=== PATIENT | male | born 1940 | race Caucasian/White ===

== ENCOUNTER 2023-06-04 17:02 | Emergency (ER) | payer OTHER ==
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
[2023-06-04 19:47] LABS: Specific Gravity 1.006 (1.005-1.030); Urine Bacteria <20 /HPF (<20); Urine Bilirubin NEGATIVE (Negative); Urine Blood 3+ (OVER) (Negative); Urine Clarity Extremely Turbid (Clear); Urine Color Light-Yellow (Yellow); Urine Glucose NEGATIVE (Negative); Urine Mucus Slight /HPF (None Seen); Urine Protein 2+ (Negative); Urine Urobilinogen Normal (Normal); Urine WBC Clump Few /HPF (None Seen); Urine pH 5.5 (5.0-7.0)
[2023-06-04] MEDS ORDERED: CIPROFLOXACIN HCL 500 MG TAB ONE (19:48)
[2023-06-04 20:40] VITALS: TEMP 97.8; O2SAT 100
[2023-06-04 20:42] VITALS: BP 146/78
== END 2023-06-04 19:44 | disposition home or self-care (01) ==
LOC: ER 17:02
DX: S39.82XA Other specified injuries of lower back, initial encounter (principal); R30.0 Dysuria; V49.49XA Driver injured in collision with other motor vehicles in traffic accident, initial encounter; I10 Essential (primary) hypertension; Z95.1 Presence of aortocoronary bypass graft
CPT/HCPCS: 72131; 81001

== ENCOUNTER 2024-05-07 01:01 | Emergency (ER) | payer OTHER ==
[2024-05-07 02:34] LABS: Absolute Basophils 0.1 K/uL (0-0.5); Absolute Lymphocytes (CBC) 2.1 K/uL (0.7-4.9); Absolute Monocytes 1.2 K/uL (0.1-1.3); Basophils % 0.6 % (0-1.3); Eosinophils % 0.2 % (0-4.4); Hematocrit 38.2 % (39.6-49.0); Lymphocytes % 18.3 % (15.3-44.8); MCH 30.2 pg (27.0-35.0); MCHC 34.2 g/dL (32.0-36.0); MCV 88.3 fL (80-100); MPV 8.2 fL (7.6-11.3); Neutrophils % 69.9 % (41.7-73.7); Platelets 215 thou/uL (152-406); RBC Red Blood Cell Count 4.32 M/uL (4.33-5.43); Red Cell Distribution Width 13.6 % (12.1-15.2)
[2024-05-07 02:44] LABS: ALT/SGPT 15 U/L (16-61); Albumin 2.8 g/dL (3.4-5.0); Albumin/Globulin Ratio 0.7 (1.1-1.8); Alkaline Phosphatase 64 U/L (45-117); Anion Gap 9.3 mEq/L (5.0-15.0); BUN Blood Urea Nitrogen 17 mg/dL (7-18); Bicarbonate 28 mEq/L (21-32); Bilirubin Total 0.7 mg/dL (0.2-1.0); Globulin 3.8 g/dL (2.3-3.5); Glomerular Filtration Rate 57 ml/min (=/>90); Glucose Level 161 mg/dL (74-106); Lipase 33 U/L (13-75); Potassium 3.3 mEq/L (3.5-5.1); Protein, Total 6.6 g/dL (6.4-8.2); Sodium Level 137 mEq/L (136-145)
[2024-05-07 02:46] LABS: AST/SGOT < 10 U/L (15-37)
[2024-05-07 02:47] LABS: Specific Gravity 1.013 (1.005-1.030); Sqamous Epithelial None Seen /HPF (None Seen); Urine Bacteria None Seen /HPF (<20); Urine Bilirubin NEGATIVE (Negative); Urine Blood 3+ (OVER) (Negative); Urine Clarity Extremely Turbid (Clear); Urine Color Red (Yellow); Urine Culture Reflex Order REFLEXED; Urine Glucose NEGATIVE (Negative); Urine Ketones NEGATIVE (Negative); Urine Microscopic Reflex YN ORDER UMIC; Urine Mucus 2+ /HPF (None Seen); Urine Nitrite NEGATIVE (Negative); Urine Protein 2+ (Negative); Urine RBC >50 /HPF (None Seen); Urine Urobilinogen Normal (Normal); Urine WBC >50 /HPF (<5); Urine pH 6.5 (5.0-7.0)
[2024-05-07] MEDS ORDERED: CEFTRIAXONE 1000 MG/VIAL ONE (03:40)
[2024-05-07] MEDS ORDERED: NA CHLORIDE 0.9% 50 ML ONE (03:41)
[2024-05-07] MEDS ORDERED: MORPHINE 4 MG/ML SYR ONE (03:50)
[2024-05-07] MEDS ORDERED: ONDANSETRON 4 MG/2 ML VIAL ONE (03:50)
--- NOTE | 2024-05-07 05:52 | ER ---
Nurse's Notes [facility] Name: Murtaza Rodriguez Age: 83 yrs Sex: Male : 1940 Arrival Date: 05/07/2024 Time: 01:01 Bed 8 Private MD: Edwar Dong V Diagnosis: Acute cystitis;Acute cystitis with hematuria Presentation: 05/07 01:36 Chief complaint: Patient states: I have been having bloody urine with my intermittent jb4 cath's all day. I have also been having a chest heaviness when I take deep breaths and I just don't feel right. Coronavirus screen: At this time, the client does not indicate any symptoms associated with coronavirus-19. Ebola Screen: No symptoms or risks identified at this time. Initial Sepsis Screen: Does the patient meet any 2 criteria? No. Patient's initial sepsis screen is negative. Does the patient have a suspected source of infection? No. Patient's initial sepsis screen is negative. Risk Assessment: Do you want to hurt yourself or someone else? Patient reports no desire to harm self or others. Onset of symptoms was May 07, 2024. Transition of care: patient was not received from another setting of care. 01:36 Method Of Arrival: Ambulatory jb4 01:36 Acuity: SAMUEL 3 jb4 Triage Assessment: 04:24 General: Appears in no apparent distress. comfortable, Behavior is calm, cooperative, bm8 appropriate for age. Historical: - Allergies: 01:43 No Known Allergies; jb4 - Home Meds: 01:43 Xarelto oral [Active]; jb4 - PMHx: 01:43 a fib; coronary atherosclerosis; Hypercholesterolemia; Hypertensive disorder; jb4 - PSHx: 01:43 Coronary artery bypass graft; jb4 - Immunization history:: Adult Immunizations up to date. - Infectious Disease History:: Denies. - Family history:: not pertinent. - Social history:: Smoking status: Patient denies any tobacco usage or history of. Screenin:12 [facility] ED Fall Risk Assessment (Adult) History of falling in the last 3 months, bm8 including since admission No falls in past 3 months (0 pts) Confusion or Disorientation No (0 pts) Intoxicated or Sedated No (0 pts) Impaired Gait No (0 pts) Mobility Assist Device Used No (0 pt) Altered Elimination No (0 pt) Score/Fall Risk Level 0 - 2 = Low Risk Oriented to surroundings, Maintained a safe environment, Educated pt \T\ family on fall prevention, incl call for assistance when getting out of bed, Assessed \T\ reinforced patient's understanding of fall precautions. Abuse screen: Denies threats or abuse. Nutritional screening: No deficits noted. Tuberculosis screening: No symptoms or risk factors identified. Assessment: 01:42 Reassessment: Patient appears in no apparent distress at this time. Patient and/or bm8 family updated on plan of care and expected duration. Pain level reassessed. Patient is alert, oriented x 3, equal unlabored respirations, skin warm/dry/pink. 02:12 Pain: Denies pain. Neuro: No deficits noted. Level of Consciousness is awake, alert, bm8 obeys commands, Oriented to person, place, time, situation. Cardiovascular: Denies chest pain, lightheadedness, shortness of breath. Respiratory: Airway is patent Trachea midline Respiratory effort is even, unlabored, Respiratory pattern is regular, symmetrical, Breath sounds are clear bilaterally. : Reports blood in urine that started tonight Denies pain. 02:12 General: Appears in no apparent distress. comfortable. rg5 03:00 Reassessment: Patient and/or family updated on plan of care and expected duration. Pain lc8 level reassessed. Patient is alert, oriented x 3, equal unlabored respirations, skin warm/dry/pink. 04:23 Reassessment: bladder irrigation started. bm8 04:32 Reassessment:. Musculoskeletal:. rg5 05:33 Reassessment: Patient appears in no apparent distress at this time. Patient and/or bm8 family updated on plan of care and expected duration. Pain level reassessed. Patient is alert, oriented x 3, equal unlabored respirations, skin warm/dry/pink. pt's urine running clear after irrigation. Provider and pt discussed further plan of care and awaiting discharge. : Denies pain. Vital Signs: 01:36 BP 110 / 71; Pulse 68; Resp 16; Temp 99.2(TE); Pulse Ox 98% on R/A; Weight 90.72 kg jb4 (R); Height 6 ft. 0 in. (R); 02:30 BP 130 / 78; Pulse 78; Resp 17 S; Pulse Ox 97% on R/A; lc8 04:24 BP 123 / 76; Pulse 82; Resp 16; Temp 99.2; Pulse Ox 97% ; Pain 2/10; bm8 05:33 BP 116 / 74; Pulse 74; Resp 16; Temp 99.2; Pulse Ox 96% ; Pain 0/10; bm8 01:36 Body Mass Index 27.12 (90.72 kg, 182.88 cm) jb4 04:24 Pain Scale: Adult bm8 05:33 Pain Scale: Adult bm8 Troy Coma Score: 01:37 Eye Response: spontaneous(4). Motor Response: obeys commands(6). Verbal Response: sp4 oriented(5). Total: 15. 02:12 Eye Response: spontaneous(4). Motor Response: obeys commands(6). Verbal Response: bm8 oriented(5). Total: 15. 05:33 Eye Response: spontaneous(4). Motor Response: obeys commands(6). Verbal Response: bm8 oriented(5). Total: 15. ED Course: 01:08 Patient arrived in ED. gm2 01:08 Edwar Dong MD is Private Physician. gm2 01:27 Michael Lin MD is Attending Physician. sp4 01:40 Bhavesh Garces, RN is Primary Nurse. bm8 01:43 Triage completed. jb4 01:43 Arm band placed on right wrist. jb4 02:03 CT Abd/Pelvis - Without Contrast In Process Unspecified. EDMS 02:12 Patient has correct armband on for positive identification. Placed in gown. Bed in low bm8 position. Call light in reach. Side rails up X 1. Adult w/ patient. Client placed on continuous cardiac and pulse oximetry monitoring. NIBP monitoring applied. Pulse ox on. NIBP on. Door closed. Noise minimized. Warm blanket given. Verbal reassurance given. 02:12 No provider procedures requiring assistance completed. Initial lab(s) drawn, by nirmala banks sent to lab. Urine collected: straight cath specimen, chuy blood, Amount Returned: 60mL. Inserted saline lock: 20 gauge in right antecubital area, using aseptic technique. Blood collected. 04:21 3-way catheter inserted, using sterile technique, 20 Fr. Specimen obtained. initial bm8 return 300 ml. 05:51 Daron Thomas MD is Referral Physician. sp4 05:53 Provided Education on: Post ER care and need for follow up with PCP regarding Xarelto bm8 use and need to see urologist . 05:53 IV discontinued, intact, bleeding controlled, No redness/swelling at site. Pressure bm8 dressing applied. Administered Medications: 03:50 Drug: Rocephin - Rocephin (cefTRIAXone) IVPB 1 grams IVPB once over 30 mins; (mix in 50 lc8 mL NS) Route: IVPB; Infused Over: 30 mins; Site: right antecubital; 04:20 Follow up: Response: No adverse reaction; IV Status: Completed infusion lc8 04:21 Follow up: Response: No adverse reaction; IV Status: Completed infusion; IV Intake: [id number] 04:21 Drug: morphine IVP or IV 4 mg IVP once over 4 mins Route: IVP; Infused Over: 4 mins; bm8 Site: right antecubital; 04:39 Follow up: Response: No adverse reaction rg5 04:21 Drug: Ondansetron IVP 4 mg IVP once; over 2 minutes Route: IVP; Site: right antecubital;bm8 04:37 Follow up: Response: No adverse reaction rg5 Medication: 02:12 VIS not applicable for this client. bm8 Intake: 04:21 IV: 50ml; Total: 50ml. bm8 Outcome: 05:51 Discharge ordered by . sp4 05:53 Discharged to home ambulatory, bm8 05:53 Condition: stable 05:53 Discharge instructions given to patient, family, Instructed on discharge instructions, follow up and referral plans. medication usage, safety practices, Demonstrated understanding of instructions, follow-up care, medications, Prescriptions given X 1, 05:55 Patient left the ED. bm8 Signatures: Dispatcher [employer] EDMS Cyrus Huitron RN RN Michael Franco MD MD sp4 [place] 2 Bhavesh Garces RN RN bm8 Jeffrey Gao RN RN rg5 Oswald Almonte RN RN lc8 Corrections: (The following items were deleted from the chart) 04:36 02:12 General: Appears in no apparent distress. comfortable, bm8 rg5 05:02 04:57 PMHx: high cholestrol; rg5 rg5 05:02 04:57 PMHx: hyperlipedemia; rg5 rg5
--- NOTE | 2024-05-07 05:52 | EDPHYS ---
Physician Documentation [facility] Name: Murtaza Rodriguez Age: 83 yrs Sex: Male : 1940 Arrival Date: 05/07/2024 Time: 01:01 Bed 8 Private MD: Edwar Dong V ED Physician Michael Lin HPI: 05/07 01:32 This 83 yrs old Male presents to ER via Unassigned with complaints of Blood sp4 In Catheter. 01:37 83-year-old male presents with acute episode of gross hematuria at home. Patient states sp4 to take Xarelto for atrial fibrillation. Patient states he has practiced self-catheterization for the past several years. Patient reported last time he provided self cath he noticed blood in the urine.. Historical: - Allergies: 01:43 No Known Allergies; jb4 - Home Meds: 01:43 Xarelto oral [Active]; jb4 - PMHx: 01:43 a fib; coronary atherosclerosis; Hypercholesterolemia; Hypertensive disorder; jb4 - PSHx: 01:43 Coronary artery bypass graft; jb4 - Immunization history:: Adult Immunizations up to date. - Infectious Disease History:: Denies. - Family history:: not pertinent. - Social history:: Smoking status: Patient denies any tobacco usage or history of. ROS: 01:39 Constitutional: Negative for fever, chills, and weight loss, positive for gross sp4 hematuria, positive for chest heaviness Exam: 01:37 Constitutional: This is a well developed, well nourished patient who is awake, alert, sp4 and in no acute distress. Head/Face: Normocephalic, atraumatic. Eyes: Pupils equal round and reactive to light, extra-ocular motions intact. Lids and lashes normal. Conjunctiva and sclera are not injected. Cornea within normal limits. Periorbital areas with no swelling, redness, or edema. ENT: Nares patent. No nasal discharge, no septal abnormalities noted. Tympanic membranes are normal and external auditory canals are clear. Oropharynx with no redness, swelling, or masses, exudates, or evidence of obstruction, uvula midline. Mucous membranes moist. Neck: Trachea midline, no thyromegaly or masses palpated, and no cervical lymphadenopathy. Supple, full range of motion without nuchal rigidity, or vertebral point tenderness. Chest/axilla: Normal chest wall appearance and motion. Nontender with no deformity. No lesions are appreciated. Cardiovascular: Regular rate and rhythm with a normal S1 and S2. No gallops, murmurs, or rubs. Normal PMI, no JVD. No pulse deficits. Respiratory: Lungs have equal breath sounds bilaterally, clear to auscultation and percussion. No rales, rhonchi or wheezes noted. No increased work of breathing, no retractions or nasal flaring. Abdomen/GI: Soft, with normal bowel sounds. No distension or tympany. No guarding or rebound. No evidence of tenderness throughout. Back: No spinal tenderness. No costovertebral tenderness. Male : Normal genitalia with no discharge or lesions. Skin: Warm, dry with normal turgor. Normal color with no rashes, no lesions, and no evidence of cellulitis. MS/ Extremity: Pulses equal, no cyanosis. Neurovascular intact. Full, normal range of motion. Neuro: Awake and alert, GCS 15, oriented to person, place, time, and situation. Cranial nerves II-XII grossly intact. Motor strength 5/5 in all extremities. Sensory grossly intact. Psych: Awake, alert, with orientation to person, place and time. Behavior, mood, and affect are within normal limits 04:43 ECG was reviewed by the Attending Physician. EKG 74 bpm at 0 221 reveals A-fib at 74 sp4 bpm. Vital Signs: 01:36 BP 110 / 71; Pulse 68; Resp 16; Temp 99.2(TE); Pulse Ox 98% on R/A; Weight 90.72 kg jb4 (R); Height 6 ft. 0 in. (R); 02:30 BP 130 / 78; Pulse 78; Resp 17 S; Pulse Ox 97% on R/A; lc8 04:24 BP 123 / 76; Pulse 82; Resp 16; Temp 99.2; Pulse Ox 97% ; Pain 2/10; bm8 05:33 BP 116 / 74; Pulse 74; Resp 16; Temp 99.2; Pulse Ox 96% ; Pain 0/10; bm8 01:36 Body Mass Index 27.12 (90.72 kg, 182.88 cm) jb4 04:24 Pain Scale: Adult bm8 05:33 Pain Scale: Adult bm8 Steff Coma Score: 01:37 Eye Response: spontaneous(4). Motor Response: obeys commands(6). Verbal Response: sp4 oriented(5). Total: 15. 02:12 Eye Response: spontaneous(4). Motor Response: obeys commands(6). Verbal Response: bm8 oriented(5). Total: 15. 05:33 Eye Response: spontaneous(4). Motor Response: obeys commands(6). Verbal Response: bm8 oriented(5). Total: 15. Procedures: 05:49 Three-way catheter was placed and patient's bladder was irrigated with 3 L of sterile sp4 saline. Clear effluent obtained. . MDM: 01:27 Patient medically screened. sp4 03:34 ED course: TECHNIQUE: Axial computed tomography images of the abdomen and pelvis sp4 without intravenous contrast. Sagittal and coronal reformatted images were created and reviewed. This CT exam was performed using one or more of the following dose reduction techniques: automated exposure control, adjustment of the mA and/or kV according to patient size, and/or use of iterative reconstruction technique. COMPARISON: No relevant prior studies available. FINDINGS: Lung bases: Left lower lobe calcified granuloma. No consolidation. Pleural space: Trace left pleural fluid. Heart: The heart is mildly enlarged. Coronary artery calcification. ABDOMEN: Liver: Hepatic parenchymal calcifications compatible with remote granulomatous organism exposure. Gallbladder and bile ducts: Tiny layering gallstones. No gallbladder wall thickening or pericholecystic fluid. No ductal dilation. Pancreas: Unremarkable. No ductal dilation. Spleen: Splenic parenchymal calcifications compatible with remote granulomatous organism exposure. Adrenals: Unremarkable. No mass. Kidneys and ureters: Lobulated renal contour bilaterally. No calculi. No hydronephrosis. Bilateral renal cysts measuring 2.5 cm at the lateral mid pole on the right and 2 cm at the posterolateral mid pole on the left. No follow-up imaging is recommended. JACR 2018 Dec; 264-273, Management of the Incidental Renal Mass on CT, [employer] 2020; 814-848, Bosniak Classification of Cystic Renal Masses, Version 2019. Stomach and bowel: Moderate stool. No bowel obstruction. No appreciable mucosal thickening. PELVIS: Appendix: Normal caliber appendix. No findings to suggest acute appendicitis. Bladder: Moderate urinary bladder wall thickening. There is extensive lobulated soft tissue density within the urinary bladder measuring approximately 7.1 x 7.6 x 5 cm (AP by transverse by CC). Reproductive: The prostate is enlarged. ABDOMEN and PELVIS: Intraperitoneal space: Unremarkable. No free air. No significant fluid collection. Bones/joints: Prior median sternotomy. Multilevel spondylosis. No acute fracture. No dislocation. Soft tissues: Small fat-containing umbilical and bilateral inguinal hernias. Vasculature: Severe atherosclerotic disease. No abdominal aortic aneurysm. Lymph nodes: Unremarkable. No enlarged lymph nodes. IMPRESSION: 1. Extensive lobulated soft tissue density within the urinary bladder measuring approximately 7.1 x 7.6 x 5 cm (AP x TR x CC). Findings may be related to hemorrhagic clot in combination with an underlying mass/malignancy. 2. Moderate urinary bladder wall thickening. This may be related to bladder outlet obstruction. Please correlate clinically for cystitis. 3. Other findings as above. . 05:49 Differential Diagnosis Hematuria, Acute cystitis . Data reviewed: vital signs, nurses sp4 notes. ED course: Patient went through bladder irrigation and oral bladder was irrigated out producing clear effluent. Will prescribe cephalexin twice a day for 10 days patient will be referred to Dr. Thomas with urology. Will advised to continue p.o. Xarelto as prescribed. . 05:55 ED course: Stable for discharge home at this time with Urology follow up . sp4 05/07 01:37 Order name: CBC with Diff; Complete Time: 03:34 sp4 05/07 01:37 Order name: CMP; Complete Time: 03:34 sp4 05/07 01:37 Order name: Lipase; Complete Time: 03:34 sp4 05/07 01:37 Order name: Urinalysis w/ reflexes; Complete Time: 03:34 sp4 05/07 02:57 Order name: Urine Culture EDDC 05/07 01:37 Order name: CT Abd/Pelvis - Without Contrast sp4 05/07 01:37 Order name: EKG; Complete Time: 01:38 sp4 05/07 01:37 Order name: IV Saline Lock; Complete Time: 02:18 sp4 05/07 01:37 Order name: Labs collected and sent; Complete Time: 02:18 sp4 05/07 01:37 Order name: Cath; Complete Time: 02:18 sp4 05/07 01:37 Order name: EKG - Nurse/Tech; Complete Time: 02:25 sp4 05/07 03:40 Order name: [place]; Complete Time: 04:21 sp4 05/07 03:40 Order name: Bladder Irrigation; Complete Time: 04:21 sp4 EC:43 Rate is 74 beats/min. Rhythm is irregularly irregular, A fib. QRS Withams is Normal. QRS sp4 interval is normal. QT interval is normal. No Q waves. T waves are Normal. No ST changes noted. Clinical impression: No evidence of ischemia. Interpreted by me. Reviewed by me. Administered Medications: 03:50 Drug: Rocephin - Rocephin (cefTRIAXone) IVPB 1 grams IVPB once over 30 mins; (mix in 50 lc8 mL NS) Route: IVPB; Infused Over: 30 mins; Site: right antecubital; 04:20 Follow up: Response: No adverse reaction; IV Status: Completed infusion lc8 04:21 Follow up: Response: No adverse reaction; IV Status: Completed infusion; IV Intake: [id number] 04:21 Drug: morphine IVP or IV 4 mg IVP once over 4 mins Route: IVP; Infused Over: 4 mins; bm8 Site: right antecubital; 04:39 Follow up: Response: No adverse reaction rg5 04:21 Drug: Ondansetron IVP 4 mg IVP once; over 2 minutes Route: IVP; Site: right antecubital;bm8 04:37 Follow up: Response: No adverse reaction rg5 Disposition Summary: 05/07/24 05:51 Discharge Ordered Notes: Location: Home sp4 Problem: new sp4 Symptoms: have improved sp4 Condition: Stable sp4 Diagnosis - Acute cystitis sp4 - Acute cystitis with hematuria sp4 Followup: sp4 - With: Daron Thomas MD - When: 7 - 10 days - Reason: Recheck today's complaints Discharge Instructions: - Discharge Summary Sheet sp4 - Hematuria, Adult sp4 Forms: - Patient Portal Instructions sp4 Prescriptions: - Cephalexin 500 mg Oral Capsule - take 1 capsule ORAL route every 12 hours for 10 days; 20 capsule; Refills: 0, sp4 Product Selection Permitted Signatures: Dispatcher [employer] Cyrus Raya RN RN Michael Franco MD MD sp4 Bhavesh Garces RN RN bm8 Jeffrey Gao RN RN rg5 Oswald Almonte RN RN lc8 Corrections: (The following items were deleted from the chart) 05:02 04:57 PMHx: high cholestrol; rg5 rg5 05:02 04:57 PMHx: hyperlipedemia; rg5 rg5
[2024-05-07 06:01] VITALS: TEMP 99.2
[2024-05-07 06:18] VITALS: BP 116/74; O2SAT 96
--- NOTE | 2024-05-07 08:41 | RAD REPORT ---
EXAM DESCRIPTION: CT - Abdomen Pelvis Wo Contrast - 05/07/2024 6:34 am CLINICAL HISTORY: HEMATURIA TECHNIQUE: Axial computed tomography images of the abdomen and pelvis without intravenous contrast. Sagittal and coronal reformatted images were created and reviewed. This CT exam was performed usi ng one or more of the following dose reduction techniques: automated exposure control, adjustment o f the mA and/or kV according to patient size, and/or use of iterative reconstruction technique. COMPARISON: No relevant prior studies available. FINDINGS: Lung bases: Left lower lobe calcified granuloma. No consolidation. Pleural space: Trace left pleural fluid. Heart: The heart is mildly enlarged. Coronary artery calcification. ABDOMEN: Liver: Hepatic parenchymal calcifications compatible with remote granulomatous organism exposure. Gallbladder and bile ducts: Tiny layering gallstones. No gallbladder wall thickening or pericholecy stic fluid. No ductal dilation. Pancreas: Unremarkable. No ductal dilation. Spleen: Splenic parenchymal calcifications compatible with remote granulomatous organism exposure. Adrenals: Unremarkable. No mass. Kidneys and ureters: Lobulated renal contour bilaterally. No calculi. No hydronephrosis. Bilateral renal cysts measuring 2.5 cm at the lateral mid pole on the right and 2 cm at the posterolateral mid pole on the left. No follow-up imaging is recommended. JACR 2018 Feb; 264-273, Management of the Inci dental Renal Mass on CT, [employer] 2020; 814-848, Bosniak Classification of Cystic Renal Masses, Version 2019. Stomach and bowel: Moderate stool. No bowel obstruction. No appreciable mucosal thickening. PELVIS: Appendix: Normal caliber appendix. No findings to suggest acute appendicitis. Bladder: Moderate urinary bladder wall thickening. There is extensive lobulated soft tissue density within the urinary bladder measuring approximately 7.1 x 7.6 x 5 cm (AP by transverse by CC). Reproductive: The prostate is enlarged. ABDOMEN and PELVIS: Intraperitoneal space: Unremarkable. No free air. No significant fluid collection. Bones/joints: Prior median sternotomy. Multilevel spondylosis. No acute fracture. No dislocation. Soft tissues: Small fat-containing umbilical and bilateral inguinal hernias. Vasculature: Severe atherosclerotic disease. No abdominal aortic aneurysm. Lymph nodes: Unremarkable. No enlarged lymph nodes. IMPRESSION: 1. Extensive lobulated soft tissue density within the urinary bladder measuring approx imately 7.1 x 7.6 x 5 cm (AP x TR x CC). Findings may be related to hemorrhagic clot in combination w ith an underlying mass/malignancy. 2. Moderate urinary bladder wall thickening. This may be related to bladder outlet obstruction. Ple ase correlate clinically for cystitis. 3. Other findings as above. Electronically signed by: Tawana Haro MD 05/07/2024 02:35 AM CDT RP Due to temporary technical issues with the PACS/Fluency reporting system, reports are being signed by the in house radiologists without review as a courtesy to insure prompt reporting. The interpreting radiologist is fully responsible for the content of the report.
--- NOTE | 2024-05-10 15:05 | EKG ---
Test Date: 2024-05-07 Test Time: 02:21:16 Child Psychologist: JOHNATHON MEASUREMENT RESULTS: Intervals: Rate: 74 [place]: QRSD: 98 QT: 392 QTc: 435 [place]: P: [place]: QRS: -25 T: -15 INTERPRETIVE STATEMENTS: Atrial fibrillation Septal infarct, age undetermined Abnormal ECG No previous ECG available for comparison Electronically Signed On 05-10-24 14:55:01 CDT by Catarino Kan
== END 2024-05-07 05:55 | disposition home or self-care (01) ==
LOC: ER 01:01
DX: N30.01 Acute cystitis with hematuria (principal); Z79.01 Long term (current) use of anticoagulants
CPT/HCPCS: 96365; 93005; 87088; 85025; 81001; 87086; 36415; 87077; 87186; 83690; 80053; 74176; 96375; 99285; J2405; J0696

== ENCOUNTER 2025-09-05 17:05 | Inpatient (IN) | payer OTHER ==
--- NOTE | 2025-09-05 18:41 | RAD REPORT ---
EXAMINATION: ONE VIEW CHEST XR CLINICAL INDICATION: Cough;Congestion TECHNIQUE: Frontal chest projection is submitted. Examination is limited by patient positioning and t echnique. COMPARISON: 08/04/2025 FINDINGS: Interstitial markings are mildly prominent which may indicate interstitial edema or viral bronchitis. The heart is mildly enlarged in size. No displaced fractures identified. Sternotomy wires present. Small right pleural effusion suspected.
[2025-09-05 19:04] LABS: Absolute Lymphocytes (CBC) 1.1 K/uL (0.7-4.9); Hematocrit 34.3 % (39.6-49.0); Hemoglobin 10.8 g/dL (13.6-17.9); MCH 24.1 pg (27.0-35.0); MCHC 31.4 g/dL (32.0-36.0); MCV 76.9 fL (80-100); MPV 7.5 fL (7.6-11.3); Nucleated RBC Absolute Count 0.0 (0-0); Nucleated Red Blood Cells % 0.0 % (0-0); RBC Red Blood Cell Count 4.46 M/uL (4.33-5.43); White Blood Count 19.00 thou/uL (4.3-10.9)
[2025-09-05 19:15] LABS: PT Prothrombin Time 21.3 SECONDS (10-13.0); PTT, Activated Partial Thromb 35.1 SECONDS (27.2-37.4); Protime INR 1.92
[2025-09-05 19:24] LABS: ALT/SGPT 15.0 U/L (16-61); AST/SGOT 14.0 U/L (15-37); Albumin 2.8 g/dL (3.4-5.0); Albumin/Globulin Ratio 0.7 (1.1-1.8); Alkaline Phosphatase 74.0 U/L (45-117); Anion Gap 12.3 mEq/L (5.0-15.0); BUN Blood Urea Nitrogen 16.0 mg/dL (7-18); Globulin 4.1 g/dL (2.3-3.5); Glucose Level 220.0 mg/dL (74-106); NT PRO-BNP 2623.0 pg/mL (<450); Potassium 3.3 mEq/L (3.5-5.1); Troponin High Sensitivity 12.4 pg/mL (<58.9)
--- NOTE | 2025-09-05 19:35 | ER ---
Nurse's Notes [facility] Name: Murtaza Rodriguez Age: 85 yrs Sex: Male : 1940 Arrival Date: 09/05/2025 Time: 17:05 Bed 24 Private MD: Diagnosis: Pneumonia, unspecified organism;Severe sepsis without septic shock;Unspecified atrial fibrillation Presentation: 09/05 17:13 Chief complaint: Patient states: Cough, congestion, fever, sore throat since 2 days me1 ago. Coronavirus screen: Vaccine status: Patient reports being unvaccinated. Ebola Screen: No symptoms or risks identified at this time. Initial Sepsis Screen: Does the patient meet any 2 criteria? HR > 90 bpm. Does the patient have a suspected source of infection? No. Patient's initial sepsis screen is negative. Risk Assessment: Do you want to hurt yourself or someone else? Patient reports no desire to harm self or others. Onset of symptoms was September 03, 2025. 17:13 Method Of Arrival: Ambulatory [facility] [place] 17:13 Acuity: SAMUEL 3 me1 Historical: - Allergies: 17:17 No Known Allergies; me1 - PMHx: 17:17 a fib; coronary atherosclerosis; Hypercholesterolemia; Hypertensive disorder; me1 - PSHx: 17:17 Coronary artery bypass graft; me1 - Immunization history:: Adult Immunizations up to date. - Infectious Disease History:: Denies. - Social history:: Smoking status: Patient denies any tobacco usage or history of. Screenin:56 [facility] ED Fall Risk Assessment (Adult) History of falling in the last 3 months, zm including since admission No falls in past 3 months (0 pts) Confusion or Disorientation No (0 pts) Intoxicated or Sedated No (0 pts) Impaired Gait No (0 pts) Mobility Assist Device Used No (0 pt) Altered Elimination No (0 pt) Score/Fall Risk Level 0 - 2 = Low Risk Oriented to surroundings, Maintained a safe environment, Educated pt \T\ family on fall prevention, incl call for assistance when getting out of bed, Assessed \T\ reinforced patient's understanding of fall precautions, Hourly rounding (assess needs \T\ fall precautionary measures) done, Used ambulatory aids as needed (educated on \T\ assisted with), Used gait belt as appropriate. Abuse screen: Denies threats or abuse. Denies injuries from another. Nutritional screening: No deficits noted. Tuberculosis screening: No symptoms or risk factors identified. Assessment: 18:40 General: Appears in no apparent distress. comfortable, Behavior is calm, cooperative. zm Pain: Denies pain. Neuro: Level of Consciousness is awake, alert, obeys commands, Oriented to person, place, time, situation. Cardiovascular: Denies chest pain, Heart tones S1 S2 present Capillary refill < 3 seconds in bilateral fingers Patient's skin is warm and dry. Respiratory: Airway is patent Respiratory effort is even, unlabored, Respiratory pattern is regular, symmetrical, Breath sounds are clear bilaterally. GI: No signs and/or symptoms were reported involving the gastrointestinal system. : No signs and/or symptoms were reported regarding the genitourinary system. EENT: Throat is clear Reports chest congestion. Derm: No signs and/or symptoms reported regarding the dermatologic system. Skin is intact, is healthy with good turgor, Skin is pink, warm \T\ dry. Musculoskeletal: No signs and/or symptoms reported regarding the musculoskeletal system. Circulation, motion, and sensation intact. Range of motion: intact in all extremities. 19:00 General: Appears comfortable, ill, well groomed, well developed, well nourished, me1 Behavior is calm, cooperative, appropriate for age, Reports Cough, congestion, fever, sore throat since 2 days ago. Pain: Denies pain. Neuro: Level of Consciousness is awake, alert, obeys commands, Oriented to person, place, time, situation, Appropriate for age. Cardiovascular: Patient's skin is warm and dry. Respiratory: Airway is patent Respiratory effort is even, unlabored, Respiratory pattern is regular, symmetrical. Respiratory: Reports cough that is persistent. GI: No signs and/or symptoms were reported involving the gastrointestinal system. GI: No signs and/or symptoms were reported involving the gastrointestinal system. : No signs and/or symptoms were reported regarding the genitourinary system. EENT: Throat is reddened Reports nasal congestion pain when swallowing. Derm: Skin is intact, is healthy with good turgor, Skin is pink, warm \T\ dry. Musculoskeletal: Circulation, motion, and sensation intact. Range of motion: intact in all extremities. 23:00 Reassessment: Patient appears in no apparent distress at this time. Patient and/or jb4 family updated on plan of care and expected duration. Pain level reassessed. Patient is alert, oriented x 3, equal unlabored respirations, skin warm/dry/pink. 09/06 00:00 Reassessment: Patient appears in no apparent distress at this time. Patient and/or jb4 family updated on plan of care and expected duration. Pain level reassessed. Patient is alert, oriented x 3, equal unlabored respirations, skin warm/dry/pink. Vital Signs: 09/05 17:13 BP 155 / 79; Pulse 139; Resp 19; Temp 98.4; Pulse Ox 97% ; Weight 89.81 kg; Height 6 me1 ft. 0 in. ; Pain 0/10; 19:02 BP 122 / 72; Pulse 103; Resp 17; Pulse Ox 97% on R/A; Pain 0/10; zm 20:00 BP 111 / 66; Pulse 94; Resp 20; Pulse Ox 97% ; me1 21:00 BP 131 / 69; Pulse 97; Resp 20; Pulse Ox 99% ; me1 21:30 BP 141 / 67; Pulse 94; Resp 18; Pulse Ox 99% ; me1 22:48 BP 125 / 66; Pulse 93; Resp 17; Temp 98.4; Pulse Ox 98% on R/A; Pain 0/10; bm8 09/06 00:30 BP 134 / 87; Pulse 85; Resp 16; Pulse Ox 98% on R/A; jb4 09/05 17:13 Body Mass Index 26.85 (89.81 kg, 182.88 cm) la1 09/05 17:13 Pain Scale: Adult me1 19:02 Pain Scale: Adult zm 22:48 Pain Scale: Adult bm8 Savannah Coma Score: 09/05 19:02 Eye Response: spontaneous(4). Motor Response: obeys commands(6). Verbal Response: zm oriented(5). Total: 15. 22:48 Eye Response: spontaneous(4). Motor Response: obeys commands(6). Verbal Response: bm8 oriented(5). Total: 15. 09/06 00:30 Eye Response: spontaneous(4). Motor Response: obeys commands(6). Verbal Response: jb4 oriented(5). Total: 15. ED Course: 09/05 17:08 Patient arrived in ED. im 17:10 Ana Recio FNP-C is PHCP. kb 17:10 Elvis Veronica MD is Attending Physician. kb 17:17 Triage completed. me1 17:17 Arm band placed on Patient placed in waiting room. me1 18:22 Marietta Farnsworth, HEBER is Primary Nurse. zm 18:24 Chest Single View XRAY In Process Unspecified. EDMS 18:35 First set of blood cultures drawn by me. zm 18:42 EKG done, by boiler control technician. reviewed by Ana PATEL. ts3 18:50 Initial lab(s) drawn, by me, sent to lab. Inserted saline lock: 20 gauge in right zm antecubital area, using aseptic technique. Blood collected. Flushed with 10 mL NS. 18:50 Second set of blood cultures drawn by me. zm 18:56 Patient has correct armband on for positive identification. Bed in low position. Call zm light in reach. Side rails up X 1. Adult w/ patient. Provided Education on: call light use. Client placed on continuous cardiac and pulse oximetry monitoring. NIBP monitoring applied. nurse monitoring on. Pulse ox on. NIBP on. Door closed. Noise minimized. Lights dimmed. Warm blanket given. Verbal reassurance given. 18:56 BNP Sent. zm 18:56 Blood Culture Adult (2) Sent. zm 18:56 CBC with Diff Sent. zm 18:56 CMP Sent. zm 18:56 Group A Streptococcus Rapid Sent. zm 18:56 Lactate w/ 2H reflex if indic. Sent. zm 18:56 Protime (+inr) Sent. zm 18:56 Ptt, Activated Sent. zm 18:56 Troponin HS Sent. zm 19:00 No provider procedures requiring assistance completed. me1 19:13 Report given to HEBER Pedroza. zm 19:26 Notified Nurse Practitioner and/or Physician Acoustical Installer of a critical lab result(s), me1 lactate 2.2, Informed DEXTER Liang. 19:34 Lilly De MD is Hospitalizing Provider. kb 19:53 PHCP role handed off by Ana Recio FNP-C sb4 19:53 Dora Flower PA-C is PHCP. sb4 20:25 CT Head Brain wo Cont In Process Unspecified. EDMS 20:25 CT Chest For PE Angio In Process Unspecified. EDMS 22:47 Patient admitted, IV remains in place. bm8 09/06 08:14 Ana Recio FNP-C is [facility]. kb Administered Medications: 09/05 20:03 Drug: Rocephin IV 1 grams IV at calculated rate once; Given slow IV push per pharmacy me1 instructions Route: IV; Rate: calculated rate; Site: right antecubital; 20:35 Follow up: Response: No adverse reaction; IV Status: Completed infusion me1 20:03 Drug: NS 0.9% IV 500 ml 500 ml IV at 1 bolus once; to be given as a bolus over 30 me1 minutes Volume: 500 ml; Route: IV; Rate: 1 bolus; Site: right antecubital; 21:40 Follow up: Response: No adverse reaction; IV Status: Completed infusion me1 20:35 Drug: Zithromax IVPB 500 mg IVPB once over 1 hrs; mix in 250 mL NS Route: IVPB; Infused me1 Over: 1 hrs; Site: right antecubital; 21:41 Follow up: Response: No adverse reaction; IV Status: Completed infusion me1 Medication: 18:56 VIS not applicable for this client. zm Outcome: 19:34 Decision to Hospitalize by Provider. kb 22:47 Admitted to ER Hold. Please see [facility] for further documentation. bm8 22:47 Condition: stable 22:47 Instructed on follow up and referral plans. the need for admit, Demonstrated understanding of instructions, follow-up care, medications, 09/06 08:50 Admitted to Med/surg via wheelchair, room 415, db 08:51 Patient left the ED. db Signatures: Dispatcher [employer] EDOH Ana Recio FNP-C FNP-Ckb Bryson, James RN RN jb4 Marietta Farnsworth RN RN zm Benton, Danielle, RN RN db Brown, Sophia, PA-C PAFabian sb4 Alem Dangelo Michelle, RN RN me1 Bhavesh Garces RN RN bm8 Jeny Michel ts3 Corrections: (The following items were deleted from the chart) 09/05 20:20 17:13 Chief complaint: Patient states: Cough, congestion, fever, sore throat since 2 me1 days ago me1
--- NOTE | 2025-09-05 19:35 | EDPHYS ---
Physician Documentation [facility] Name: Murtaza Rodriguez Age: 85 yrs Sex: Male : 1940 Arrival Date: 09/05/2025 Time: 17:05 Bed 24 Private MD: ED Physician Elvis Veronica HPI: 09/05 18:34 This 85 yrs old Male presents to ER via Ambulatory with complaints of Flu Symptoms. kb 18:34 Patient is a 5-year-old male who presents for cough, congestion, fever, sore throat, kb shortness of breath and dizziness upon exertion for 2 to 3 days. Denies nausea, vomiting, diarrhea.. Historical: - Allergies: 17:17 No Known Allergies; me1 - PMHx: 17:17 a fib; coronary atherosclerosis; Hypercholesterolemia; Hypertensive disorder; me1 - PSHx: 17:17 Coronary artery bypass graft; me1 - Immunization history:: Adult Immunizations up to date. - Infectious Disease History:: Denies. - Social history:: Smoking status: Patient denies any tobacco usage or history of. ROS: 18:34 Constitutional: As per HPI kb Exam: 18:34 Constitutional: This is a well developed, well nourished patient who is awake, alert, kb and in no acute distress. Head/Face: Normocephalic, atraumatic. ENT: Moist Mucous membranes Cardiovascular: Regular rate Respiratory: Respirations even and unlabored. No increased work of breathing. Talking in full sentences Skin: Warm, dry with normal turgor. Normal color. MS/ Extremity: Pulses equal, no cyanosis. Neurovascular intact. Full, normal range of motion. Neuro: Awake and alert, GCS 15, oriented to person, place, time, and situation. 18:56 ECG was reviewed by the Attending Physician. kb Vital Signs: 17:13 BP 155 / 79; Pulse 139; Resp 19; Temp 98.4; Pulse Ox 97% ; Weight 89.81 kg; Height 6 me1 ft. 0 in. ; Pain 0/10; 19:02 BP 122 / 72; Pulse 103; Resp 17; Pulse Ox 97% on R/A; Pain 0/10; zm 20:00 BP 111 / 66; Pulse 94; Resp 20; Pulse Ox 97% ; me1 21:00 BP 131 / 69; Pulse 97; Resp 20; Pulse Ox 99% ; me1 21:30 BP 141 / 67; Pulse 94; Resp 18; Pulse Ox 99% ; me1 22:48 BP 125 / 66; Pulse 93; Resp 17; Temp 98.4; Pulse Ox 98% on R/A; Pain 0/10; bm8 09/06 00:30 BP 134 / 87; Pulse 85; Resp 16; Pulse Ox 98% on R/A; jb4 09/05 17:13 Body Mass Index 26.85 (89.81 kg, 182.88 cm) me1 09/05 17:13 Pain Scale: Adult me1 19:02 Pain Scale: Adult zm 22:48 Pain Scale: Adult bm8 [place] Coma Score: 09/05 19:02 Eye Response: spontaneous(4). Motor Response: obeys commands(6). Verbal Response: zm oriented(5). Total: 15. 22:48 Eye Response: spontaneous(4). Motor Response: obeys commands(6). Verbal Response: bm8 oriented(5). Total: 15. 09/06 00:30 Eye Response: spontaneous(4). Motor Response: obeys commands(6). Verbal Response: jb4 oriented(5). Total: 15. MDM: 09/05 17:10 Medical Screening Exam initiated kb 18:34 Data reviewed: vital signs, nurses notes. kb 19:32 Differential diagnosis: pneumonia, severe sepsis, bronchitis, viral infection. kb Consideration of Admission/Observation Patient was admitted/placed on observation. Escalation of care including admission/observation considered. Management of patient was discussed with the following: Hospitalist: Judi [employer] accepts pt for admission. Wants CT head and CT chest to rule out PE prior to admission orders. Historians other than the Patient: Spouse/Significant Other: spouse. Counseling: I had a detailed discussion with the patient and/or guardian regarding the historical points, exam findings, and any diagnostic results supporting the discharge/admit diagnosis, lab results, radiology results, the need for further work-up and treatment in the hospital. 09/05 17:17 Order name: BNP; Complete Time: 19:27 kb 09/05 17:17 Order name: Blood Culture Adult (2) kb 09/05 17:17 Order name: CBC with Diff; Complete Time: 20:55 kb 09/05 17:17 Order name: CMP; Complete Time: 19:27 kb 09/05 17:17 Order name: Lactate w/ 2H reflex if indic.; Complete Time: 19:27 kb 09/05 17:17 Order name: Protime (+inr); Complete Time: 19:19 kb 09/05 17:17 Order name: Ptt, Activated; Complete Time: 19:19 kb 09/05 17:17 Order name: Troponin HS; Complete Time: 19:27 kb 09/05 17:17 Order name: COVID-19 Ag + Flu A+B Ag; Complete Time: 19:40 kb 09/05 17:17 Order name: Group A Streptococcus Rapid; Complete Time: 19:29 kb 09/05 19:28 Order name: Ghost Lactate-NO COLLECT Timer; Complete Time: 21:31 EDMS 09/05 19:30 Order name: Throat Culture EDMS 09/05 20:54 Order name: CBC Smear Scan; Complete Time: 20:55 EDMS 09/05 21:10 Order name: Lactate w/ 2H reflex if indic.; Complete Time: 21:51 me1 09/05 21:53 Order name: Ghost Lactate-NO COLLECT Timer EDMS 09/05 23:46 Order name: CBC with Automated Diff EDMS 09/05 23:46 Order name: CBC with Automated Diff; Complete Time: 08:13 EDMS 09/05 23:46 Order name: CBC with Automated Diff EDMS 09/05 23:46 Order name: CBC with Automated Diff EDMS 09/05 23:46 Order name: Comprehensive Metabolic Panel EDMS 09/05 23:46 Order name: Comprehensive Metabolic Panel; Complete Time: 08:13 EDMS 09/05 23:46 Order name: Comprehensive Metabolic Panel EDMS 09/05 23:46 Order name: Comprehensive Metabolic Panel EDMS 09/05 23:46 Order name: Lipid Profile EDMS 09/05 23:46 Order name: Lipid Profile; Complete Time: 08:13 EDMS 09/05 23:46 Order name: Magnesium EDMS 09/05 23:46 Order name: Magnesium; Complete Time: 08:13 EDMS 09/05 23:46 Order name: Magnesium EDMS 09/05 23:46 Order name: Magnesium EDMS 09/05 17:17 Order name: Chest Single View XRAY; Complete Time: 18:45 kb 09/05 19:31 Order name: CT Head Brain wo Cont; Complete Time: 21:11 kb 09/05 19:31 Order name: CT Chest For PE Angio; Complete Time: 21:11 kb 09/06 08:07 Order name: US; Complete Time: 08:13 EDMS 09/05 17:17 Order name: EKG; Complete Time: 17:17 kb 09/05 17:17 Order name: Accucheck; Complete Time: 18:56 kb 09/05 17:17 Order name: Cardiac monitoring; Complete Time: 18:42 kb 09/05 17:17 Order name: EKG - Nurse/Tech; Complete Time: 18:42 kb 09/05 17:17 Order name: IV Saline Lock - Large Bore; Complete Time: 18:56 kb 09/05 17:17 Order name: Labs collected and sent; Complete Time: 18:56 kb 09/05 17:17 Order name: O2 Per Protocol; Complete Time: 18:56 kb 09/05 17:17 Order name: O2 Sat Monitoring; Complete Time: 18:42 kb 09/05 17:17 Order name: Vital Signs; Complete Time: 18:56 kb EC:56 Rate is 106 beats/min. Rhythm is irregularly irregular. Left axis deviation noted. QRS kb interval is normal at 121 msec. QT interval is normal at 403 msec. Administered Medications: 20:03 Drug: Rocephin IV 1 grams IV at calculated rate once; Given slow IV push per pharmacy me1 instructions Route: IV; Rate: calculated rate; Site: right antecubital; 20:35 Follow up: Response: No adverse reaction; IV Status: Completed infusion me1 20:03 Drug: NS 0.9% IV 500 ml 500 ml IV at 1 bolus once; to be given as a bolus over 30 me1 minutes Volume: 500 ml; Route: IV; Rate: 1 bolus; Site: right antecubital; 21:40 Follow up: Response: No adverse reaction; IV Status: Completed infusion me1 20:35 Drug: Zithromax IVPB 500 mg IVPB once over 1 hrs; mix in 250 mL NS Route: IVPB; Infused me1 Over: 1 hrs; Site: right antecubital; 21:41 Follow up: Response: No adverse reaction; IV Status: Completed infusion me1 Disposition: 09/06 07:01 Co-signature as Attending Physician, Elvis Veronica MD I reviewed the patient's care rn provided by the Advanced Practice Provider and agree with the diagnosis and treatment plan. Disposition Summary: 09/05/25 19:34 Hospitalization Ordered Notes: Hospitalization Status: Inpatient Admission kb Provider: Lilly De Condition: Stable kb Problem: new kb Symptoms: are unchanged kb Bed/Room Type: Standard kb Location: Telemetry/MedSurg (Inpatient)(09/06/25 07:28) bd Room Assignment: 415(09/06/25 07:28) bd Diagnosis - Pneumonia, unspecified organism kb - Severe sepsis without septic shock kb - Unspecified atrial fibrillation kb Forms: - Medication Reconciliation Form kb - SBAR form kb - Leadership Thank You Letter kb Signatures: Dispatcher [employer] EDMS Ana Recio, CHAINMAN-C CHAINMAN-CkJuliet Lucio Roman, MD MD rn Calcote, Vanessa, RN RN vc1 Dora Flower PA-C PAFabian sb4 Kasia Interiano, RN RN me1 Corrections: (The following items were deleted from the chart) 09/05 17:18 17:17 PROBNP+C.LAB.BRZ ordered. EDMS EDMS 17:18 17:17 BLOOD CULTURE*+BA.LAB.BRZ ordered. EDMS EDMS 17:18 17:17 CBC+H.LAB.BRZ ordered. EDMS EDMS 17:18 17:17 COMPREHENSIVE METABOLIC PANEL+C.LAB.BRZ ordered. EDMS EDMS 17:18 17:17 LACTATE+C.LAB.BRZ ordered. EDMS EDMS 17:18 17:17 PROTIME (+INR)+COAG.LAB.BRZ ordered. EDMS EDMS 17:18 17:17 PTT, ACTIVATED+COAG.LAB.BRZ ordered. EDMS EDMS 17:18 17:17 Troponin High Sensitivity+C.LAB.BRZ ordered. EDMS EDMS 17:18 17:17 COVID-19 Ag + Flu A+B Ag+I.LAB.BRZ ordered. EDMS EDMS 17:18 17:17 Group A Streptococcus Rapid Sc+I.LAB.BRZ ordered. EDMS EDMS 19:31 19:31 Head Brain Wo Cont+CT.RAD.BRZ ordered. EDMS EDMS 19:31 19:31 Chest For PE Angio+CT.RAD.BRZ ordered. EDMS EDMS 19:34 Telemetry/MedSurg (Inpatient) kb vc1 : 19:34 kb vc1 09/06 0728 09/05 22:14 [facility] ER HOLD vc1 bd 09/06:14 ERHOLD- vc1 bd
[2025-09-05 19:37] LABS: Influenza A Ag Negative; Influenza B Ag Negative; SARS-CoV-2 Antigen Rapid Res Negative (Negative)
[2025-09-05] MEDS ORDERED: NA CHLORIDE 0.9% 500 ML ONE (19:54)
[2025-09-05] MEDS ORDERED: CEFTRIAXONE 1000 MG/VIAL ONE (19:54)
[2025-09-05] MEDS ORDERED: NA CHLORIDE 0.9% 100 ML ONE (19:54)
[2025-09-05] MEDS ORDERED: NA CHLORIDE 0.9% 250 ML ONE (19:54)
[2025-09-05] MEDS ORDERED: AZITHROMYCIN 500 MG INJ IVPB ONE (19:54)
[2025-09-05 20:52] LABS: White Blood Cell Scan OK (OK)
[2025-09-05 20:54] LABS: Blood Morphology Comment NOTED (NOT SEEN); Ovalocytes 1+
--- NOTE | 2025-09-05 21:06 | RAD REPORT ---
EXAM: CT brain without contrast HISTORY: DIZZINESS COMPARISON: 07/09/2008 TECHNIQUE: Multiple contiguous axial images were obtained and a CT of the brain without contrast. Sag ittal and coronal reformats were performed. One or more of the following dose reduction techniques were used: Automated exposure control, adjust ment of the mA and/or kV according to patient size, and/or iterative reconstruction. FINDINGS: No evidence of hydrocephalus, intracranial hemorrhage, or extra-axial fluid collection. Mild brain atrophy with mild periventricular and deep white matter chronic microvascular ischemic ch anges present. No evidence of midline shift or areas of brain edema. Bilateral vertebral atherosclerosis. The calvarium is intact. Mild polypoid mucosal thickening noted in the paranasal sinuses. IMPRESSION: No evidence of acute intracranial abnormality.
--- NOTE | 2025-09-05 21:10 | RAD REPORT ---
EXAMINATION: CTA CHEST PE CLINICAL INDICATION: DYSPNEA TECHNIQUE: This examination was performed according to an angiographic protocol with 3D post-processi ng. This involves 3D reconstructions, MIPs, volume rendered images and/or shaded surface rendering. One or more of the following dose reduction techniques were used: Automated exposure control, adjustm ent of the mA and/or kV according to patient size, and/or iterative reconstruction. Unless otherwise specified, incidental findings do not require dedicated imaging follow-up. COMPARISON: No prior exam. FINDINGS: PULMONARY ARTERIES: Normal caliber. No evidence of pulmonary emboli to the subsegmental level. THORACIC AORTA: Normal caliber and configuration. LUNGS: Patchy airspace opacity is present in the right upper lobe. The lungs are otherwise mildly emp hysematous but clear. Calcified nodules present in the left base posteriorly. PLEURA: No pleural effusion. No pneumothorax. MEDIASTINUM AND LYMPH NODES: No mediastinal mass or fluid collection. Normal size mediastinal, hilar, and axillary lymph nodes. OSSEOUS STRUCTURES AND CHEST WALL: Intact. UPPER ABDOMEN: Small hiatal hernia. Cholelithiasis. IMPRESSION: No evidence of pulmonary emboli to the subsegmental level. Patchy opacities in the right upper lobe are favored to be infectious. Suggest follow-up imaging and 3 months to ensure resolution following appropriate therapy. Cholelithiasis.
[2025-09-05] MEDS ORDERED: ALBUTEROL 2.5 MG/3 ML NEB SOL NEB PRN (23:38)
[2025-09-05] MEDS ORDERED: ACETAMINOPHEN 500 MG TAB PO PRN (23:38)
--- NOTE | 2025-09-05 23:45 | P.HP ---
Certification for Inpatient Patient admitted to: Inpatient With expected LOS: >2 Midnights Patient will require the following post-hospital care: None Practitioner: I am a practitioner with admitting privileges, knowledge of patient current condition, hospital course, and medical plan of care. Services: Services provided to patient in accordance with Admission requirements found in Title 42 Section 412.3 of the Code of Federal Regulations Patient History Date of Service: 09/05/25 Reason for admission: Sepsis due to community-acquired pneumonia. History of Present Illness: Patient is a pleasant 85-year-old male with past medical history of CAD, A-fib, hypercholesteremia, hypertension, who reports to ER today complaining of flulike symptoms, including cough, pulmonary congestion, subjective fever, sore throat, shortness of breath, and dizziness. Patient states he has been having symptoms for the past 2 to 3 days. States his symptoms worsen especially with exertion. States he presented to ER today because of worsening symptoms. Workup in the ER concerning for community- acquired pneumonia. Initial lactic 2.2, WBC 19, with a left shift. On admission assessment, patient has scattered bilateral coarse crackles, with no respiratory distress. Patient denies having associated chest pain or shortness of breath at this time. Course in ER. (1) CTA chest. Impression: No evidence of pulmonary emboli to the subsegmental level. Patchy opacities in the right upper lobe favored to be infectious. Suggest follow-up imaging in 3 months to ensure resolution following appropriate therapy. Cholelithiasis. (2) CT head. Impression: No evidence of acute intracranial normality. Allergies No Known Allergies Allergy (Verified 04/09/17 10:20) Home Medications: Aspirin 325 mg PO DAILY 04/10/17 Atorvastatin Calcium [Lipitor] 40 mg PO MO,FR 04/10/17 Cinnamon Bark/Chromium Picolin [Cinnamon Plus Chromium Capsule] 1,000 mg PO DAILY 04/10/17 Glipizide [Glipizide Xl] 2.5 mg PO DAILY 04/10/17 Losartan Potassium [Cozaar] 25 mg PO DAILY 04/10/17 Metoprolol Succinate [Toprol Xl] 50 mg PO DAILY 04/10/17 Niacin (Inositol Niacinate) [Niacin 500 mg Capsule] 500 mg PO DAILY 04/10/17 Ranitidine HCl [Zantac 75] 75 mg PO BID 04/10/17 Ubidecarenone/Vit E Acet [Co Q-10 100 mg Softgel] 1 tab PO DAILY 04/10/17 Amlodipine [Norvasc] 10 mg PO DAILY 09/06/25 Rivaroxaban [Xarelto] 20 mg PO DAILY 09/06/25 - Past Medical/Surgical History Diabetic: Yes -: 2014 NIIDM -: BPH -: HTN -: hyperlipidemia -: 04/09 dyspnea & CP with exertion + circumflex -: heart cath = -: bladder tumor benign 2010 - Family History Father -: Heart disease, Hypertension Mother Notes: PEs - Social History Alcohol use: Yes CD- Drugs: No Caffeine use: Yes Physical Examination - Studies Laboratory Data (last 24 hrs) 09/05/25 09/05/25 09/05/25 18:50 18:50 18:50 WBC 19.00 H Hgb 10.8 L Hct 34.3 L Plt Count 351 PT 21.3 H INR 1.92 APTT 35.1 Sodium 136 Potassium 3.3 L BUN 16 Creatinine 1.49 H Glucose 220 H Total Bilirubin 0.6 AST 14 L ALT 15 L Alkaline Phosphatase 74 Assessment and Plan - Plan Patient admitted inpatient with diagnosis of sepsis due to community-acquired pneumonia. (1)Sepsis due to community-acquired pneumonia. - Rocephin 1 g IV daily. - Azithromycin 500 mg IV daily. -DuoNeb every 6 as needed. - Follow-up lactic acid. (2)Dizziness and near syncope. - Order bilateral carotid artery ultrasound in AM. Patient states his PCP was planning to do same test outpatient later part of this year when he complained of the dizziness that he is having. (3) chronic atrial fibrillation. -Continue home medication Xarelto 20 mg p.o. daily. (4) Home medication to be resumed when reconciled. (5)Explained entire treatment plan to the patient and present at bedside, solicited questions answered voiced understanding. - Advance Directives Does patient have a Living Will: No Does patient have a Durable POA for Healthcare: No
[2025-09-06] MEDS ORDERED: HEPARIN 5000 UNIT/ML 1 ML VIAL ONE (01:00)
[2025-09-06] MEDS: HEPARIN 5000 UNIT/ML 1 ML VIAL SQ SCH (01:00)
[2025-09-06 01:55] VITALS: BMI 26.8
[2025-09-06 05:27] LABS: Absolute Lymphocytes (CBC) 1.9 K/uL (0.7-4.9); Hematocrit 30.8 % (39.6-49.0); Hemoglobin 10.0 g/dL (13.6-17.9); MCH 24.8 pg (27.0-35.0); MCHC 32.4 g/dL (32.0-36.0); MCV 76.6 fL (80-100); MPV 7.2 fL (7.6-11.3); Nucleated RBC Absolute Count 0.0 (0-0); Nucleated Red Blood Cells % 0.0 % (0-0); RBC Red Blood Cell Count 4.02 M/uL (4.33-5.43); White Blood Count 15.80 thou/uL (4.3-10.9)
[2025-09-06 05:46] LABS: AST/SGOT 11 U/L (15-37); Albumin 2.5 g/dL (3.4-5.0); Albumin/Globulin Ratio 0.7 (1.1-1.8); Alkaline Phosphatase 68 U/L (45-117); Anion Gap 8.2 mEq/L (5.0-15.0); BUN Blood Urea Nitrogen 16 mg/dL (7-18); Globulin 3.7 g/dL (2.3-3.5); Glucose Level 136 mg/dL (74-106); HDL Cholesterol 53 mg/dL (40-60); LDL Cholesterol, Calculated 56 mg/dL (<130); LDL Cholesterol,Calc NonReport 56; Magnesium 1.9 mg/dL (1.6-2.4); Potassium 3.2 mEq/L (3.5-5.1)
[2025-09-06 05:48] LABS: ALT/SGPT < 14 U/L (16-61)
[2025-09-06] MEDS: POTASSIUM CL SA 10 MEQ TAB PO ONE ×2 (06:55→09:38)
--- NOTE | 2025-09-06 08:06 | RAD REPORT ---
EXAMINATION: CAROTID DUPLEX ULTRASOUND CLINICAL INDICATION: Dizziness/ Near Syncope TECHNIQUE: Real-time grayscale, color flow and spectral Doppler sonographic images were obtained of t he extracranial carotid system using a linear transducer. COMPARISON: No prior exam. FINDINGS: RIGHT: Common carotid artery: 80 cm/s Internal carotid artery: 260 cm/s External carotid artery: 107 cm/s Right ICA/CCA ratio: 3.3 Plaque: Significant hard plaquing is present greatest in the right mid ICA Vertebral artery Antegrade LEFT: Common carotid artery: 100 cm/s Internal carotid artery: 62 cm/s External carotid artery: 129 cm/s Left ICA/CCA ratio: 0.6 Plaque: No significant plaquing seen. Vertebral artery Antegrade IMPRESSION: Hemodynamically significant stenosis is suspected mid right ICA. This is estimated to be between 80- 90% visually. CT angiography of the neck vessels may be useful for further characterization. The degrees of stenosis, if any, are quantified according to the consensus statement of the Society o f Radiologists in Ultrasound (SRUS). Please refer to Jose Ramon E, Jj C, Keith G et al. Carotid Artery Stenosis: Berry-Scale and Doppler US Diagnosis--Society of Radiologists in Ultrasound Consensus Conference. Radiology. 2003;229(2):340-6.
[2025-09-06] MEDS: CEFTRIAXONE 1,000 MG in NA CHLORIDE 0.9% 50 ML IVPB SCH (09:37)
--- NOTE | 2025-09-06 13:00 | RAD REPORT ---
EXAMINATION: Neck Angio CLINICAL INDICATION: Syncope. Carotid arterial disease. TECHNIQUE: Axial CT images were obtained from the aortic arch to the skull base after intravenous adm inistration of 100 cc Isovue-370 utilizing angiographic protocol. Multiplanar reformats, as well as 3D post-processing (maximum intensity projection images, volume rendered images and/or shaded surface rendered images) were generated and reviewed. One or more of the following dose reduction techniques were used: Automated exposure control, adjustment of the mA and/or kV according to patient size, and/or iterative reconstruction. Unless otherwise specified, incidental findings do not require dedicated imaging follow-up. COMPARISON: September 06, 2025 carotid ultrasound FINDINGS: The visualized aortic arch and great vessels do not demonstrate a significant abnormality Moderate calcified plaque distal right vertebral artery. Mild calcified plaque distal left vertebral artery. Mild calcified plaque carotid bulb and proximal left internal carotid artery. Calcified plaque mid right internal carotid artery which is severe. Mild calcified plaque within the remainder of the common carotid, internal carotid and external carot id arteries bilaterally. A dissection not seen Right upper lobe opacities without significant change from CT chest September 05, 2025. Please refer to that report for recommendation Methods for NASCET criteria: Mild stenosis, 0% to 49%; Moderate stenosis 50% to 69%; Severe stenosis, 70% to 99% IMPRESSION: Calcified plaque mid right internal carotid artery appears resulting in approximately 75% stenosis
[2025-09-06] MEDS: RIVAROXABAN 20 MG TABLET PO SCH (16:59)
[2025-09-06] MEDS: AZITHROMYCIN IV 500 MG in NA CHLORIDE 0.9% 250 ML IVPB SCH (20:47)
[2025-09-06] MEDS: ONDANSETRON 4 MG/2 ML VIAL IV PRN (22:16)
[2025-09-06] MEDS: PANTOPRAZOLE 40 MG INJ IVP ONE (22:16)
[2025-09-06] MEDS: SODIUM CHLORIDE 0.9% 10ML INJ IV PRN (22:17)
[2025-09-07 06:12] LABS: Absolute Lymphocytes (CBC) 1.1 K/uL (0.7-4.9); Hematocrit 32.0 % (39.6-49.0); Hemoglobin 10.1 g/dL (13.6-17.9); MCH 24.2 pg (27.0-35.0); MCHC 31.5 g/dL (32.0-36.0); MCV 76.9 fL (80-100); MPV 7.3 fL (7.6-11.3); Nucleated RBC Absolute Count 0.0 (0-0); Nucleated Red Blood Cells % 0.0 % (0-0); RBC Red Blood Cell Count 4.16 M/uL (4.33-5.43); White Blood Count 13.70 thou/uL (4.3-10.9)
[2025-09-07 06:23] VITALS: TEMP 98.2
[2025-09-07 06:38] LABS: AST/SGOT 13 U/L (15-37); Albumin 2.4 g/dL (3.4-5.0); Albumin/Globulin Ratio 0.6 (1.1-1.8); Alkaline Phosphatase 64 U/L (45-117); Anion Gap 8.1 mEq/L (5.0-15.0); BUN Blood Urea Nitrogen 16 mg/dL (7-18); Globulin 4.0 g/dL (2.3-3.5); Glucose Level 185 mg/dL (74-106); Magnesium 2.1 mg/dL (1.6-2.4); Potassium 4.1 mEq/L (3.5-5.1)
[2025-09-07 06:42] LABS: ALT/SGPT < 14 U/L (16-61)
[2025-09-07 12:03] VITALS: O2SAT 97
[2025-09-07 12:47] VITALS: BP 138/74
== END 2025-09-07 13:22 | disposition home or self-care (01) | DRG 871 ==
LOC: ER 17:05 → ERHOLD 23:37 → 4TH 09-06 07:56
PROVIDERS: ADMIT Hospitalist; ATTEND Hospitalist
DX: A41.9 Sepsis, unspecified organism (principal); J18.9 Pneumonia, unspecified organism; I48.20 Chronic atrial fibrillation, unspecified; R65.20 Severe sepsis without septic shock; I10 Essential (primary) hypertension; E78.00 Pure hypercholesterolemia, unspecified; I25.10 Atherosclerotic heart disease of native coronary artery without angina pectoris; Z95.1 Presence of aortocoronary bypass graft; Z79.82 Long term (current) use of aspirin; Z79.84 Long term (current) use of oral hypoglycemic drugs; Z79.01 Long term (current) use of anticoagulants; Z79.899 Other long term (current) drug therapy; Z11.52 Encounter for screening for COVID-19
CPT/HCPCS: 36415; 70450; 70498; 71045; 71275; 80053; 80061; 83605; 83735; 83880; 84484; 85025; 85610; 85730; 87040; 87070; 87428; 93005; 93880; 94760; 96365; 96367; 99285; A4216; J0456; J0696; J1644; J2405; J2470; J7040; J7050; Q9967